=== PATIENT | male | born 1935 | race African-American/Black ===

== ENCOUNTER 2017-04-29 16:26 | Inpatient (IN) | payer MEDICARE ==
[2017-04-29 17:19] VITALS: BP 158/75
[2017-04-29] MEDS ORDERED: Maalox 30 mL Cup PO PRN (20:19)
[2017-04-29] MEDS ORDERED: Magnesium Hydroxide (MOM) 30 mL UDC PO PRN (20:19)
[2017-04-30] MEDS ORDERED: Pantoprazole 40 mg EC Tab PO SCH (06:30)
[2017-04-30] MEDS: Pantoprazole 40 mg EC Tab PO SCH (07:32)
[2017-04-30] MEDS ORDERED: Non-Formulary Item 1 EA (Dexlansoprazole [Dexilant] 60 MG) PO SCH (09:00)
[2017-04-30] MEDS: Multivitamin Tab PO SCH (09:18)
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
[2017-04-30] MEDS ORDERED: Haloperidol Lactate 5 mg/mL 1mL Vial ONE (12:21)
[2017-04-30] MEDS ORDERED: Haloperidol Lactate 5 mg/mL 1mL Vial IM ONE (12:25)
[2017-05-01] MEDS: Pantoprazole 40 mg EC Tab PO SCH (06:32)
[2017-05-01] MEDS: Multivitamin Tab PO SCH (08:33)
--- NOTE | 2017-05-01 15:39 | Progress Notes ---
DATE: 05/01/2017 SUBJECTIVE: The patient seen and examined. The patient is sitting in the chair. Upon further questions patient said he wants to go home. Denies any chest pain, shortness of breath, palpitation, dizziness, nausea, vomiting. OBJECTIVE: VITAL SIGNS: Temperature 98.2, pulse 70, respiratory rate 18, blood pressure 130/76. HEENT: No facial asymmetry. NECK: Supple, no JVD. HEART: Regular. CHEST: Lungs equal in expansion, no wheezing, no crackles. ABDOMEN: Soft. No guarding, no rigidity. Bowel sounds are present. No palpable mass. EXTREMITIES: No edema. CLINICAL IMPRESSION: 1. Hypertension. 2. Benign prostatic hypertrophy. 3. Gout. 4. Degenerative joint disease. 5. Psychotic disorder exacerbation. 6. Mild dementia. 7. History of atrial fibrillation. PLAN: The patient will be continued on medication as patient is receiving for underlying problem for gout, which includes Colcrys, hypertension was Norvasc. The patient does take baclofen for the muscle relaxant, which will be continued. Symptoms management provided. Follow up lab will be done: Psychotic evaluation and management deferred to psychiatrist. The patient will be followed by us during the stay in the hospital. JOB# [id number]
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
--- NOTE | 2017-05-01 22:51 | Progress Notes ---
DATE: SUBJECTIVE: The patient was seen and evaluated. The patient's chart reviewed. This is Dr. Chin covering for Dr. Pittman. IDENTIFYING DATA: This is an 81-year-old male presented, agitated and aggressive. Today on [id number] evaluation, the patient's nurses reported the patient continues to be very aggressive, yelling, irritable, agitated. Today on ceen-wv-vlnc evaluation upon approach, he starts screaming without redirection and need a lot of redirection. MENTAL STATUS EXAMINATION: Disorganized, psychotic, delusional. ASSESSMENT AND PLAN: The patient is an 81-year-old male who has been still agitated, who easily derails with conversation. We will continue with the current medication regimen to 50 mg p.o. b.i.d. to target the patient's ongoing residual disorganized thought process that results in lashing out on others. JOB# [id number]
[2017-05-02] MEDS: Pantoprazole 40 mg EC Tab PO SCH (06:32)
[2017-05-02 07:37] LABS: ALB/GLOB RATIO 0.9 (1.0-1.8); ALBUMIN 3.4 gm/dL (4.2-5.5); ALKALINE PHOSPHATASE 104 U/L (34-104); ANION GAP 9.3 (7.0-16.0); BILIRUBIN,TOTAL 0.7 mg/dL (0.3-1.0); BUN - UREA NITROGEN 16 mg/dL (7-25); CALCIUM SERUM 9.5 mg/dL (8.6-10.3); CARBON DIOXIDE 30.5 mEq/L (21.0-31.0); CHLORIDE 102 mEq/L (98-107); CREATININE - SERUM 1.1 mg/dL (0.7-1.3); GLUCOSE 96 mg/dL (70-105); POTASSIUM SERUM 3.8 mEq/L (3.5-5.1); SGOT 17 U/L (13-39); SGPT/ALT 15 U/L (7-52); SODIUM SERUM 138 mEq/L (136-145); TOTAL PROTEIN,SERUM 7.2 gm/dL (6.0-8.3)
[2017-05-02 07:56] LABS: HEMATOCRIT 33.9 % (41.0-60); HEMOGLOBIN 11.3 gm/dL (12-16); MEAN CELL VOLUME 88.9 fl (80-99); MEAN CORPUSCULAR HEMOGLOBIN 29.6 pg (27.0-31.0); MEAN CORPUSCULAR HGB CONC 33.3 pg (28.0-36.0); MEAN PLATELET VOLUME 7.8 fl; PLATELET COUNT 305 Th/cmm (150-400); RED BLOOD COUNT 3.81 Mil/cmm (3.80-5.80); RED CELL DISTRIBUTION WIDTH 12.6 % (11.5-20.0)
[2017-05-02 07:59] LABS: WHITE BLOOD COUNT 2.2 Th/cmm (4.8-10.8)
[2017-05-02 08:00] LABS: MANUAL DIFF REQUIRED? YES
[2017-05-02 08:22] LABS: LYMPHOCYTE 45 % (20-50); MONOCYTE 7 % (2-10); NEUTROPHILS 48 % (40-80); TOTAL CELLS COUNTED 100
[2017-05-02] MEDS: Multivitamin Tab PO SCH (09:20)
--- NOTE | 2017-05-03 01:37 | Progress Notes ---
DATE: 05/02/2017 SUBJECTIVE: The patient was seen and evaluated. The patient's chart reviewed. Today on dnqe-dh-ypov evaluation, he seems to be easily irritable, verbally yelling, screaming, very difficult to redirect. MENTAL STATUS EXAMINATION: Disorganized thought process, confused, disengaged. ASSESSMENT AND PLAN: An 81-year-old male still noted to be agitated with conversation. We will continue with the current medications. Adjustment of the Seroquel to 50 mg p.o. b.i.d. to target the patient's disorganized thought process, which impairs ability to maintain a linear conversation to advocate for his ADLs. [facility]# [id number]
[2017-05-03] MEDS: Pantoprazole 40 mg EC Tab PO SCH (06:42)
[2017-05-03] MEDS: Multivitamin Tab PO SCH (08:58)
[2017-05-03] MEDS ORDERED: Haloperidol Lactate 5 mg/mL 1mL Vial ONE (13:50)
[2017-05-03] MEDS ORDERED: Haloperidol Lactate 5 mg/mL 1mL Vial IM ONE (14:00)
--- NOTE | 2017-05-03 17:54 | Progress Notes ---
DATE: 05/03/2017 SUBJECTIVE: The patient seen and examined. The patient sitting in the chair. Denies any chest pain, shortness of breath, palpitation, dizziness, nausea, vomiting, diarrhea. The patient prefers to go home. PHYSICAL EXAMINATION: VITAL SIGNS: Temperature 97, pulse is 80, respiratory is 18, blood pressure 150/80. HEENT: No facial asymmetry. NECK: Supple, no JVD. No lymphadenopathy, thyromegaly. HEART: Both heart sounds are regular. CHEST: Lung equal in expansion. No wheezing, no crackles. ABDOMEN: Soft. No guarding, no rigidity. Liver, spleen no palpable mass. EXTREMITIES: No edema, no cyanosis, no calf tenderness. NEUROLOGIC: Nonfocal. LABORATORY DATA: White count of 2.2. Hemoglobin 11.3. Chemistry panels are within normal limit. CLINICAL IMPRESSION: 1. Leukopenia, etiology needs to determine. 2. Hypertension. 3. BPH. 4. Hyperlipidemia. 5. Degenerative joint disease. 6. Psychotic disorder 7. History of atrial fibrillation. PLAN: We will proceed with hepatitis panel, B12, folate, MEGA, ESR, RA and CPK to be checked for evaluation of leukopenia. Based on that, we will pursue further. Continue to provide antihypertensive medication with low sodium diet. Continue other medicine as patient receiving for his underlying chronic problem. Psychotic evaluation with the psychiatrist and the patient will be followed by us during his stay in the hospital. JOB# [id number]
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
[2017-05-04] MEDS: Pantoprazole 40 mg EC Tab PO SCH (06:40)
[2017-05-04 08:11] LABS: HEP A AB IGM Negative (Negative); HEP B CORE IGM Negative (Negative); HEP B SURFACE AG QL Negative (Negative); HEP C ANTIBODY 0.2 s/co ratio (0.0-0.9)
[2017-05-04] MEDS: Multivitamin Tab PO SCH (08:32)
--- NOTE | 2017-05-04 22:48 | Progress Notes ---
DATE: 05/04/[address] Pittman. The patient continues to be paranoid, confused. The patient continues with unpredictable, impulsive, needing redirection. Continues to have poor insight about his behavior prior to admission. He is compliant with the medication with no side effects, no sedation, no nausea, no extrapyramidal symptoms. We will continue to work with the patient in group therapy, milieu therapy, and adjust the medications as needed. JOB# [id number]
--- NOTE | 2017-05-04 22:55 | Progress Notes ---
DATE: 05/04/[address] Pittman. SUBJECTIVE: Case was discussed with staff of the patient and reviewed records. He continues to be unpredictable, impulsive, threatening at times. Continues to have poor insight, isolating himself, unable to make a safe plan for self-care or carry on a conversation. No side effects with the medication, no sedation, no nausea, no extrapyramidal symptoms. PLAN: We will continue to work with the patient in group therapy, milieu therapy, and adjust medications as needed. JOB# [id number]
--- NOTE | 2017-05-05 05:41 | Progress Notes ---
DATE: 05/04/2017 SUBJECTIVE: The patient seen and examined. The patient has no new complaints. Workup for leukopenia has been ordered as well. PHYSICAL EXAMINATION: VITAL SIGNS: See nurse's note. HEENT: No facial asymmetry. NECK: Supple, no JVD. HEART: Regular. CHEST AND LUNGS: Equal in expansion, no wheezing, no crackles. ABDOMEN: Soft. EXTREMITIES: No edema. NEUROLOGIC: Nonfocal. AVAILABLE DIAGNOSTIC DATA AND LABORATORY DATA: ESR is reported 65. Hepatitis panels are negative. RF factor are normal. TSH is normal. CLINICAL IMPRESSION: 1. Elevated ESR. 2. Leukopenia. 3. Hypertension. 4. Gout. PLAN: Proceed with a lupus panel to be addressed in order to rule out autoimmune disorder. Continue to watch white blood cell count to get lower than usual in order to avoid neutropenia. The patient will be getting medication for medical management as ordered. The patient will be followed by us during the stay in the hospital. JOB# [id number]
[2017-05-05] MEDS: Pantoprazole 40 mg EC Tab PO SCH (06:42)
[2017-05-05] MEDS: Multivitamin Tab PO SCH (08:55)
--- NOTE | 2017-05-05 20:24 | Progress Notes ---
DATE: Chart reviewed and the patient interviewed. Also discussed the patient's condition with the staff and reviewed records and labs. The patient continued to be confused and forgetful. The patient also is fixating on his ex- and he is paranoid, thinking that she did something wrong for him. The patient also has episodes of agitation and irritability and he had to be given injection 2 days ago because of his aggressive and agitation. He is still confused and needs lots of redirections. Otherwise, the patient is compliant with taking his medications. We will continue monitoring his medications and will continue to follow up. JOB# [id number]
[2017-05-06] MEDS: Pantoprazole 40 mg EC Tab PO SCH (06:43)
[2017-05-06] MEDS: Multivitamin Tab PO SCH (08:53)
[2017-05-06 15:12] LABS: ANTI-NUCLEAR AB SCREEN Negative
--- NOTE | 2017-05-06 23:07 | Progress Notes ---
DATE: 05/06/2017 PATIENT'S ID: An 82-year-old male. SUBJECTIVE: The patient seen and examined. The patient is sitting in the chair. No new event. Lupus panel has been requested, which is partially available anti Zena-1 antibody was less than 0.2. Rheumatoid factor was 10.2. Hepatitis panel is negative. Vitamin B12 reported 282, which is low normal. Thyroid functions are normal. OBJECTIVE: VITAL SIGNS: Temperature 97.8, pulse 74, respiratory is 18, blood pressure 100/66. HEENT: No facial asymmetry. NECK: Supple. No JVD. HEART: Regular. CHEST: Lung equal in expansion. LUNGS: No wheezing. No crackles. ABDOMEN: Soft. EXTREMITIES: No edema. CLINICAL IMPRESSION: 1. Elevated ESR. 2. Leukopenia. 3. Low level of normal vitamin B12. 4. Hypertension. 5. Gout. PLAN: Await complete workup for lupus panel for now. Replace vitamin B12. Monitor the blood pressure. Continue other medicine as prescribed. We will continue to follow this patient during his stay. JOB# [id number]
[2017-05-07] MEDS: Pantoprazole 40 mg EC Tab PO SCH (06:39)
[2017-05-07] MEDS: Multivitamin Tab PO SCH (08:33)
[2017-05-08] MEDS: Pantoprazole 40 mg EC Tab PO SCH (06:34)
[2017-05-08] MEDS: Multivitamin Tab PO SCH (09:21)
--- NOTE | 2017-05-08 21:50 | Progress Notes ---
DATE: 05/08/2017 An 81-year-old male, placed on a hold for danger to others. Apparently aggressive toward . The patient apparently was somewhat paranoid, driving on the wrong side of the road, angry, and agitated. The patient still remains symptomatic. Dr. Pittman is seeing the patient over the past few days, noting he remained confused, forgetful, paranoid, episodes of agitation, irritability, and confusion noted. MEDICATIONS: Noted. Currently on Seroquel. ASSESSMENT: The patient remains symptomatic, still noted to be somewhat disoriented. Some paranoia is noted. Unable to make a plan for self. Still impulsive, threatening at times. Medications were reviewed. ASSESSMENT: The patient remains symptomatic, not safe for a lower level of care, highly impulsive and unpredictable. PLAN: We will continue to monitor, continue to titrate medications. Continue to adjust the medications based on tolerability and side effect profile. JOB# [id number]
[2017-05-09] MEDS: Pantoprazole 40 mg EC Tab PO SCH (06:37)
[2017-05-09] MEDS: Multivitamin Tab PO SCH (09:32)
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
--- NOTE | 2017-05-09 16:44 | Progress Notes ---
DATE: 05/09/2017 An 81-year-old male placed on a hold. The patient threatening behaviors, argumentative, irritability, not safe outside of the hospital setting. On [id number]-da-bxfh, the patient is essentially refusing interview, does not want to talk to me. According to Dr. Pittman a few days ago the patient remains aggressive and agitated in the hospital requiring emergency medications, paranoid. After some time the patient begins talking to me. He knows that he wants to leave. He knows that he lives with his , minimizing his symptoms. The patient remains somewhat confused, disoriented, mostly fixated on leaving the hospital, angry with finding out he cannot leave the hospital. The patient is eating fairly well, sleeping with district superintendent awakenings. MEDICATIONS: Noted. ASSESSMENT: The patient remains somewhat disoriented, symptomatic, minimizing. He is calm at this time; however, medications were noted. PLAN: We will continue to monitor. I will continue to adjust and titrate medications. He is currently on Seroquel 75 mg twice daily. JOB# [id number]
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
[2017-05-10] MEDS: Pantoprazole 40 mg EC Tab PO SCH (06:37)
[2017-05-10] MEDS: Multivitamin Tab PO SCH ×2 (09:08→09:12)
[2017-05-11] MEDS: Pantoprazole 40 mg EC Tab PO SCH (06:48)
[2017-05-11] MEDS: Multivitamin Tab PO SCH (08:30)
[2017-05-12] MEDS: Pantoprazole 40 mg EC Tab PO SCH (06:30)
[2017-05-12] MEDS: Multivitamin Tab PO SCH ×2 (09:27→11:26)
[2017-05-12] MEDS ORDERED: Haloperidol Lactate 5 mg/mL 1mL Vial ONE (16:43)
[2017-05-12] MEDS ORDERED: Haloperidol Lactate 5 mg/mL 1mL Vial IM ONE (16:50)
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
[2017-05-13] MEDS: Pantoprazole 40 mg EC Tab PO SCH (06:47)
[2017-05-13] MEDS: Multivitamin Tab PO SCH (09:14)
--- NOTE | 2017-05-13 17:16 | Progress Notes ---
DATE: 05/13/2017 Case was discussed with staff of the patient, reviewed records. The patient took his medication today. He is less angry and irritable. ____, although paranoid, continues to have poor insight. Continues to be unable to make safe plan for self-care. Unpredictable and impulsive and so far no side effects with the medication, no sedation, no nausea, no extrapyramidal symptoms. We will continue to work with the patient in group therapy, milieu therapy, and adjust medications. JOB# [id number]
--- NOTE | 2017-05-13 21:42 | General Progress Note ---
Subjective - Review of Systems Service Date: 05/13/17 Subjective: Patient seen and examined doing ok denied any complaints Objective - Results Result Diagrams: 05/02/17 07:04 05/02/17 07:04 Recent Labs: Laboratory Last Values WBC 2.2 Th/cmm (4.8-10.8) L* 05/02/17 07:04 RBC 3.81 Mil/cmm (3.80-5.80) 05/02/17 07:04 Hgb 11.3 gm/dL (12-16) L 05/02/17 07:04 Hct 33.9 % (41.0-60) L 05/02/17 07:04 MCV 88.9 fl (80-99) 05/02/17 07:04 MCH 29.6 pg (27.0-31.0) 05/02/17 07:04 MCHC Differential 33.3 pg (28.0-36.0) 05/02/17 07:04 RDW 12.6 % (11.5-20.0) 05/02/17 07:04 Plt Count 305 Th/cmm (150-400) 05/02/17 07:04 MPV 7.8 fl 05/02/17 07:04 Neutrophils (Manual) 48 % (40-80) 05/02/17 07:04 Lymphocytes 45 % (20-50) 05/02/17 07:04 Monocytes 7 % (2-10) 05/02/17 07:04 ESR 65 mm/hr (0-20) H 05/03/17 10:50 Sodium 138 mEq/L (136-145) 05/02/17 07:04 Potassium 3.8 mEq/L (3.5-5.1) 05/02/17 07:04 Chloride 102 mEq/L (98-107) 05/02/17 07:04 Carbon Dioxide 30.5 mEq/L (21.0-31.0) 05/02/17 07:04 Anion Gap 9.3 (7.0-16.0) 05/02/17 07:04 BUN 16 mg/dL (7-25) 05/02/17 07:04 Creatinine 1.1 mg/dL (0.7-1.3) 05/02/17 07:04 Est GFR ( Amer) TNP 05/02/17 07:04 Est GFR (Non-Af Amer) TNP 05/02/17 07:04 BUN/Creatinine Ratio 14.5 05/02/17 07:04 Glucose 96 mg/dL (70-105) 05/02/17 07:04 POC Glucose 94 MG/DL (70 - 105) 04/29/17 19:46 Calcium 9.5 mg/dL (8.6-10.3) 05/02/17 07:04 Magnesium 2.0 mg/dL (1.9-2.7) 05/02/17 07:04 Total Bilirubin 0.7 mg/dL (0.3-1.0) 05/02/17 07:04 AST 17 U/L (13-39) 05/02/17 07:04 ALT 15 U/L (7-52) 05/02/17 07:04 Alkaline Phosphatase 104 U/L (34-104) 05/02/17 07:04 Creatine Kinase 127 U/L (30-223) 05/03/17 10:50 Total Protein 7.2 gm/dL (6.0-8.3) 05/02/17 07:04 Albumin 3.4 gm/dL (4.2-5.5) L 05/02/17 07:04 Globulin 3.8 gm/dL 05/02/17 07:04 Albumin/Globulin Ratio 0.9 (1.0-1.8) L 05/02/17 07:04 Vitamin B12 282 pg/mL (232-1245) 05/04/17 10:50 TSH 1.35 uIU/ml (0.34-5.60) 05/03/17 10:50 Rheumatoid Factor 10.2 IU/mL (0.0-13.9) 05/03/17 10:50 MEGA Screen Negative 05/04/17 16:18 TERRELL-1 Antibody <0.2 05/04/17 16:18 Hepatitis A IgM Ab Negative (Negative) 05/03/17 10:50 Hep Bs Antigen Negative (Negative) 05/03/17 10:50 Hep B Core IgM Ab Negative (Negative) 05/03/17 10:50 Hepatitis C Antibody 0.2 s/co ratio (0.0-0.9) 05/03/17 10:50 - Physical Exam Vitals and I&O: Vital Signs Temp 98.1 F 05/13/17 14:30 Pulse 73 05/13/17 14:30 Resp 20 05/13/17 14:30 BP 109/61 05/13/17 14:30 Pulse Ox 98 05/13/17 14:30 Intake & Output 05/13/17 05/13/17 05/14/17 06:59 18:59 06:59 Intake Total 120 Balance 120 Intake: Oral 120 Other: # Voids 2 Active Medications: Current Medications Acetaminophen (Tylenol) 650 mg PO Q4HR PRN PRN Reason: Mild Pain / Temp above 100 Stop: 06/28/17 20:18 Al Hydrox/Mg Hydrox/Simethicone (Maalox) 30 ml PO Q4HR PRN PRN Reason: GI DISTRESS Stop: 06/28/17 20:18 Amlodipine Besylate (Norvasc) 10 mg PO DAILY [facility] Stop: 06/29/17 08:59 Last Admin: 05/13/17 09:15 Dose: 10 mg Baclofen (Lioresal) 10 mg PO TID [facility] Stop: 06/29/17 08:59 Last Admin: 05/13/17 20:47 Dose: 10 mg Colchicine (Colcrys) 0.6 mg PO DAILY [facility] Stop: 06/29/17 08:59 Last Admin: 05/13/17 09:18 Dose: 0.6 mg Cyanocobalamin (Vitamin B12) 1,000 mcg PO DAILY [facility] Stop: 07/06/17 08:59 Last Admin: 05/13/17 09:15 Dose: 1,000 mcg Lorazepam (Ativan) 0.5 mg PO Q4HR PRN; Protocol PRN Reason: Anxiety Stop: 05/29/17 20:18 Last Admin: 05/13/17 13:32 Dose: 0.5 mg Magnesium Hydroxide (Milk Of Magnesia) 30 ml PO HS PRN PRN Reason: Constipation Multivitamins/Vitamin C (Theragran) 1 tab PO DAILY [facility] Stop: 06/29/17 08:59 Last Admin: 05/13/17 09:14 Dose: 1 tab Pantoprazole Sodium (Protonix) 40 mg PO QDAC MICHAEL Stop: 06/29/17 07:29 Last Admin: 05/13/17 06:47 Dose: 40 mg Quetiapine Fumarate (Seroquel) 100 mg PO BID MICHAEL PRN Reason: Protocol Stop: 07/09/17 08:59 Last Admin: 05/13/17 17:52 Dose: 100 mg Tamsulosin HCl (Flomax) 0.4 mg PO HS MICHAEL Stop: 06/28/17 20:59 Last Admin: 05/13/17 20:47 Dose: 0.4 mg Zolpidem Tartrate (Ambien) 5 mg PO HS PRN PRN Reason: Insomnia Stop: 06/28/17 20:18 Last Admin: 05/13/17 20:47 Dose: 5 mg General: Alert Cardiovascular: Regular rate Lungs: Clear to auscultation Abdomen: Soft, no Distended Assessment/Plan - Assessment Assessment: Leucopenia Anemia BPH GERD - Plan Plan: So far negative autoimmune work up Follow up labs in am PPI Flomax Nutritional Asmnt/Malnutr-PDOC - Dietary Evaluation Malnutrition Findings (Please click <Entered> for more info): Nutritional Asmnt/Malnutrition Start: 05/05/17 15: 51 Text: Status: Complete Freq: Document 05/05/17 15:51 MERI (Rec: 05/05/17 16:00 KRISTIAN [email or web address]) Nutritional Asmnt/Malnutrition Patient General Information Nutritional Screening Moderate Risk Diagnosis psychosis Pertinent Medical Hx/Surgical Hx HTN, CHF, chronic a fib, DJD, BPH Subjective Information Pt seen sitting in dinning room at time of visit, alert but confused. Pt reported food was good, no food preference given. Per EMR, PO intake 100% x 6 meals over the past 2 days. Current Diet Order/ Nutrition Support low sodium Pertinent Medications theragran, protonix, seroquel Pertinent Labs 05/02 alb 3.4 Nutritional Hx/Data Height 1.75 m Height (Calculated Centimeters) 175.3 Current Weight (lbs) 83.915 kg Weight (Calculated Kilograms) 83.9 Weight (Calculated Grams) 32632.6 [place] Body Weight 160 Body Mass Index (BMI) 27.3 Weight Status Overweight GI Symptoms GI Symptoms None Last BM 05/04 Difficult in: None Skin Integrity/Comment: dryness Current %PO Good (75-100%) Estimated Nutritional Goals Calories/Kcals/Kg 25-30 based on IBW 73kg Kcals Calculated 5051-0228 Protein g/k Protein Calculated 73 Fluid: ml 1825-2190ml (1ml/kcal) Nutritional Problem No current Nutrition Prob Problem N/A Malnutrition Alert Protein-Calorie Malnutrition N/A Is there a minimum of two criteria No selected? Query Text:Check all the applicable criteria. A minimum of two criteria are recommended for diagnosis of either severe or non-severe malnutrition. Intervention/Recommendation Comments 1. Continue with low sodium diet as ordered. 2. Monitor PO intake, wt, labs and skin integrity 3. F/U as low risk in 7days, 4 /4 Expected Outcomes/Goals Expected Outcomes/Goals 1. PO intake to meet at least 75% of nutritional needs. 2. Wt stability, skin to remain intact, labs to approach WNL.
[2017-05-14] MEDS: Pantoprazole 40 mg EC Tab PO SCH (07:02)
[2017-05-14 07:54] LABS: % BASOPHILS 0.6 % (0.0-2.0); % EOSINOPHILS 0.1 % (0.0-5.0); % LYMPHOCYTES 35.4 % (20.0-50.0); % MONOCYTES 12.6 % (2.0-10.0); % NEUTROPHILS 51.3 % (40.0-80.0); HEMATOCRIT 35.4 % (41.0-60); HEMOGLOBIN 11.8 gm/dL (12-16); MEAN CELL VOLUME 89.1 fl (80-99); MEAN CORPUSCULAR HEMOGLOBIN 29.6 pg (27.0-31.0); MEAN CORPUSCULAR HGB CONC 33.3 pg (28.0-36.0); MEAN PLATELET VOLUME 7.2 fl; MONOCYTE ABSOLUTE 0.3 Th/cmm (0.3-1.0); NEUTROPHILE ABSOLUTE 1.4 Th/cmm (1.8-8.0); PLATELET COUNT 308 Th/cmm (150-400); RED BLOOD COUNT 3.97 Mil/cmm (3.80-5.80); RED CELL DISTRIBUTION WIDTH 13.4 % (11.5-20.0)
[2017-05-14 07:56] LABS: WHITE BLOOD COUNT 2.7 Th/cmm (4.8-10.8)
[2017-05-14 08:12] LABS: ANION GAP 9.1 (7.0-16.0); BUN - UREA NITROGEN 24 mg/dL (7-25); CALCIUM SERUM 9.6 mg/dL (8.6-10.3); CARBON DIOXIDE 29.9 mEq/L (21.0-31.0); CHLORIDE 105 mEq/L (98-107); CREATININE - SERUM 1.3 mg/dL (0.7-1.3); GLUCOSE 98 mg/dL (70-105); SODIUM SERUM 140 mEq/L (136-145)
[2017-05-14] MEDS: Multivitamin Tab PO SCH (11:24)
--- NOTE | 2017-05-14 21:22 | Progress Notes ---
DATE: 05/14/2017 Case was discussed with staff of the patient, reviewed records. The patient continues to have ____ being very agitative, continues to be psychotic, unpredictable, impulsive, needing redirection. Continues to have poor insight and his Seroquel dose was increased on the 2nd to 100 mg twice a day. He was not taking it that he start taking it since yesterday. He has no side effects with the medication, no sedation, no nausea, no extrapyramidal symptoms. The patient continues to be gravely disabled and unable to make safe plan for self-care. He can formulate a safe plan for self-care. No side effects with the medication, no sedation, no nausea. We will continue to work with the patient in group therapy, milieu therapy, and adjust medication as needed. JOB# [id number]
[2017-05-15] MEDS: Pantoprazole 40 mg EC Tab PO SCH (06:46)
[2017-05-15] MEDS: Multivitamin Tab PO SCH (09:15)
[2017-05-16] MEDS: Pantoprazole 40 mg EC Tab PO SCH (06:41)
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
[2017-05-16] MEDS: Multivitamin Tab PO SCH (09:50)
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
[2017-05-17] MEDS: Pantoprazole 40 mg EC Tab PO SCH (06:33)
[2017-05-17] MEDS: Multivitamin Tab PO SCH (10:02)
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
[2017-05-18] MEDS: Pantoprazole 40 mg EC Tab PO SCH ×2 (06:41→06:45)
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
[2017-05-18] MEDS: Multivitamin Tab PO SCH (13:06)
[2017-05-19] MEDS: Pantoprazole 40 mg EC Tab PO SCH (06:50)
[2017-05-19] MEDS: Multivitamin Tab PO SCH (09:23)
[2017-05-19] MEDS: OLANZapine 5 mg Oral Disintegrating Tab PO SCH ×2 (09:23→18:36)
--- NOTE | 2017-05-19 23:38 | Progress Notes ---
DATE: SUBJECTIVE: Chart reviewed and the patient interviewed. Also discussed the patient's condition with the staff and reviewed the records and labs. The patient is still extremely agitated and confused. The patient also is still paranoid. Also, staff reports that the patient has poor hygiene and he ____ in his room and also ____ all over the place. Also, has difficulty with his sleep at night. The patient also has been banging doors and windows because of his confusion and agitation. Also, has been paranoid and thinking that people are stealing his belongings. MENTAL STATUS: The patient is agitated and is confused and unable to answer any of my questions. He also is in angry mood, also suspicious, and is paranoid. ASSESSMENT: The patient is still psychotic and agitated. TREATMENT PLAN: We will continue monitoring his behavior and his condition closely. The patient also has not been compliant with taking his medications and refused his Seroquel yesterday. We will add Zyprexa Zydis for better compliance with his medications, although he is on Seroquel, but we will adjust and cross titrate medications when he is more compliant. Also, hopefully Zyprexa will help him to sleep at night. Vital signs are stable. LABORATORY DATA: No new labs available for review. Estimated length of stay 4-6 days. JOB# [id number]
[2017-05-20] MEDS: Pantoprazole 40 mg EC Tab PO SCH (07:09)
[2017-05-20] MEDS: OLANZapine 5 mg Oral Disintegrating Tab PO SCH ×2 (10:31→16:32)
[2017-05-20] MEDS: Multivitamin Tab PO SCH (10:34)
[2017-05-21] MEDS: Pantoprazole 40 mg EC Tab PO SCH (06:36)
[2017-05-21] MEDS: Multivitamin Tab PO SCH (08:39)
[2017-05-21] MEDS: OLANZapine 5 mg Oral Disintegrating Tab PO SCH (08:39)
[2017-05-21] MEDS ORDERED: Haloperidol Lactate 5 mg/mL 1mL Vial ONE (14:19)
[2017-05-21] MEDS ORDERED: Haloperidol Lactate 5 mg/mL 1mL Vial IM ONE (14:20)
== END 2017-05-21 16:00 | DRG 885 ==
LOC: GERO2 16:26 → GERO 16:51
PROVIDERS: ADMIT Psychiatry & Neurology Psychiatry; ATTEND Psychiatry & Neurology Psychiatry
DX: F23 Brief psychotic disorder (principal); I11.0 Hypertensive heart disease with heart failure; F03.90 Unspecified dementia, unspecified severity, without behavioral disturbance, psychotic disturbance, mood disturbance, and anxiety; M10.9 Gout, unspecified; M19.90 Unspecified osteoarthritis, unspecified site; N40.0 Benign prostatic hyperplasia without lower urinary tract symptoms; D72.819 Decreased white blood cell count, unspecified; K21.9 Gastro-esophageal reflux disease without esophagitis; I50.9 Heart failure, unspecified; I48.2 Chronic atrial fibrillation; Z82.49 Family history of ischemic heart disease and other diseases of the circulatory system
CPT/HCPCS: 36415-UA; 80048-TC; 80053-TC; 80074-90; 82550-TC; 82607-90; 82948-90; 83735-TC; 84443-TC; 85007-TC; 85025-TC; 85027-TC; 85652-TC; 86038-90; 86235-90; 86430-90; 90899; G0410; J1200; J1630; J2060; Z7610

== ENCOUNTER 2018-01-27 23:02 | Emergency (ER) | payer MEDICARE, MEDICAID ==
--- NOTE | 2018-01-27 23:35 | ED Physician Chart ---
ED Chief Complaint/HPI - Patient Information Date Seen:: 01/27/18 Time Seen:: 23:20 Chief Complaint:: scrotal mass History of Present Illness:: Patient states he has had scrotal swelling for 2 weeks the patient is confused. No vomiting or diarrhea. Allergies:: Allergies Allergy/AdvReac Type Severity Reaction Status Date / Time No Known Allergies Allergy Verified 01/27/18 23:03 Vitals:: Vital Signs - 8 hr 01/27/18 23:05 Temp 98.1 F HR 46 RR 20 BP 117/64 O2 Sat % 100 Historian:: Patient Review:: Transfer documents Reviewed ED Review of Systems - Review of Systems General/Constitutional: No fever, No chills, No weight loss, No weakness, No diaphoresis, No edema, No loss of appetite Skin: No skin lesions, No rash, No bruising Head: No headache, No light-headedness Eyes: No loss of vision, No pain, No diplopia ENT: No earache, No nasal drainage, No sore throat, No tinnitus Neck: No neck pain, No swelling, No thyromegaly, No stiffness, No mass noted Cardio Vascular: No chest pain, No palpitations, No PND, No orthopnea, No edema Pulmonary: No SOB, No cough, No sputum, No wheezing GI: No nausea, No vomiting, No diarrhea, No pain, No melena, No hematochezia, No constipation, No hematemesis G/U: No dysuria, No frequency, No hematuria, Other (see history and physical) Musculoskeletal: No bone or joint pain, No back pain, No muscle pain Endocrine: No polyuria, No polydipsia Psychiatric: No prior psych history, No depression, No anxiety, No suicidal ideation Hematopoietic: No bruising, No lymphadenopathy Allergic/Immuno: No urticaria, No angioedema Neurological: No syncope, No focal symptoms, No weakness, No paresthesia, No headache, No seizure, No dizziness, No confusion, No vertigo ED Past Medical History - Past Medical History Past Medical History: HTN, Dementia, Other (acute renal failure; schizophrenia; chronic renal disease; hydrocele; atrial fibrillation; aortic stenosis) Family History: Other (not available) Social History: Smoker, Care Facility Surgical History: other (not available) Psychiatricy History: Schizophrenia, Dementia Medication: Reviewed Family Medical History - Family Member mother History Unknown: Yes Ethnicity: Unknown Living Status: Unknown ED Physical Exam - Physical Examination General/Constitutional: Awake, Well-developed, well-nourished, Alert, Non-toxic appearing, Ambulatory Other Gen/Cons comments:: Patient is confused; he does not know the year Head: Atraumatic Eyes: Lids, conjuctiva normal, PERRL, EOMI Skin: Nl inspection, No rash, No skin lesions, No ecchymosis, Well hydrated, No lymphadenopathy ENMT: External ears, nose nl, Nasal exam nl, Lips, teeth, gums nl Neck: Nontender, Full ROM w/o pain, No JVD, No nuchal rigidity, No bruit, No mass, No stridor Respiratory: Nl effort/Exclusion, Clear to Auscultation, No Wheeze/Rhonchi/Rales Cardio Vascular: NL S1 S2 Other Cardio Vascular comments:: irregular rhythm with a 4/6 holosystolic murmur GI: No tenderness/rebounding/guarding, No organomegaly, No hernia, Normal BS's, Nondistended, No mass/bruits, No McBurney tenderness Other comments:: Genitalia: About 6 x 4 cm testes palpable in each hemiscrotum; in right hemiscrotum there is a 12 cm in diameter spherical mass separate from the testes Extremities: No edema Other Extremities comments:: 3 out of 4 pretibial pitting edema Neuro/Psych: No focal deficits ED Labs/Radiology/EKG Results - Radiology Results Results: Abnormal Lab Results 01/27/18 01/27/18 23:40 23:40 WBC 3.1 L RBC 3.48 L Hgb 10.3 L Hct 31.3 L MCV 89.7 MCH 29.7 MCHC Differential 33.1 RDW 14.1 Plt Count 274 MPV 7.2 Add Manual Diff YES Sodium 142 Potassium 3.8 Chloride 106 Carbon Dioxide 29.2 Anion Gap 10.6 BUN 26 H Creatinine 1.3 Est GFR ( Amer) TNP Est GFR (Non-Af Amer) TNP BUN/Creatinine Ratio 20.0 Glucose 110 H Calcium 9.5 Total Bilirubin 0.4 AST 27 ALT 34 Alkaline Phosphatase 145 H Total Protein 6.5 Albumin 3.5 L Globulin 3.0 Albumin/Globulin Ratio 1.2 Abnormal Lab Results 01/27/18 01/27/18 23:40 23:40 WBC 3.1 L RBC 3.48 L Hgb 10.3 L Hct 31.3 L MCV 89.7 MCH 29.7 MCHC Differential 33.1 RDW 14.1 Plt Count 274 MPV 7.2 Add Manual Diff YES Sodium 142 Potassium 3.8 Chloride 106 Carbon Dioxide 29.2 Anion Gap 10.6 BUN 26 H Creatinine 1.3 Est GFR ( Amer) TNP Est GFR (Non-Af Amer) TNP BUN/Creatinine Ratio 20.0 Glucose 110 H Calcium 9.5 Total Bilirubin 0.4 AST 27 ALT 34 Alkaline Phosphatase 145 H Total Protein 6.5 Albumin 3.5 L Globulin 3.0 Albumin/Globulin Ratio 1.2 Abnormal Lab Results 01/27/18 01/27/18 01/28/18 23:40 23:40 00:05 WBC 3.1 L RBC 3.48 L Hgb 10.3 L Hct 31.3 L MCV 89.7 MCH 29.7 MCHC Differential 33.1 RDW 14.1 Plt Count 274 MPV 7.2 Add Manual Diff YES Band Neutrophils % 3 Neutrophils (Manual) 49 Lymphocytes 36 Monocytes 12 H Sodium 142 Potassium 3.8 Chloride 106 Carbon Dioxide 29.2 Anion Gap 10.6 BUN 26 H Creatinine 1.3 Est GFR ( Amer) TNP Est GFR (Non-Af Amer) TNP BUN/Creatinine Ratio 20.0 Glucose 110 H Whole Bld Lactic Acid -0.04 L Calcium 9.5 Magnesium Total Bilirubin 0.4 AST 27 ALT 34 Alkaline Phosphatase 145 H Total Protein 6.5 Albumin 3.5 L Globulin 3.0 Albumin/Globulin Ratio 1.2 01/28/18 00:40 WBC RBC Hgb Hct MCV MCH MCHC Differential RDW Plt Count MPV Add Manual Diff Band Neutrophils % Neutrophils (Manual) Lymphocytes Monocytes Sodium Potassium Chloride Carbon Dioxide Anion Gap BUN Creatinine Est GFR ( Amer) Est GFR (Non-Af Amer) BUN/Creatinine Ratio Glucose Whole Bld Lactic Acid Calcium Magnesium 2.2 Total Bilirubin AST ALT Alkaline Phosphatase Total Protein Albumin Globulin Albumin/Globulin Ratio - EKG Interpretations Rate & Rhythm: junctional rhythm with a rate of 33 [place]: normal ED Assessment - Assessment General Assessment: EKG showed a junctional rhythm with a rate of 33. I spoke to Dr. Gonzalez and he felt he could not admit the patient to this hospital because there is no physician to put in a transvenous pacemaker here. Patient was given Atrovent 0.5 mg intravenously and his heart rate increased to an average of about 40-50/ min. Dr. Gonzalez suggested starting an transvenous pacemaker in the emergency department which was done. Patient to be transferred by enroute controller ambulance to [facility] where patient will be admitted by Dr. Gonzalez but patient will be seen in the emergency department. I spoke to the ED physician at [facility] Dr. Emerson. ED Septic Shock - . Is Septic Shock (SBP<90, OR Lactate>4 mmol\L) present?: No - <6hrs of presentation: Vital Signs: Vital Signs - 8 hr 01/27/ 23:05 Temp 98.1 F HR 46 RR 20 BP 117/64 O2 Sat % 100 ED Reassessment (Disposition) - Reassessment Reassessment Condition:: Unchanged - Diagnosis Diagnosis:: Cardiac arrhythmia; jeannette bradycardia; hydrocele right hemiscrotum - Patient Disposition Discharge/Transfer:: Acute Care (other hosp) Spoke to:: Matias Gonzalez Admitting Medical Physician:: Matias Gonzalez Condition at Disposition:: Stable
[2018-01-27 23:49] LABS: HEMATOCRIT 31.3 % (41.0-60); HEMOGLOBIN 10.3 gm/dL (12-16); LYMPHOCYTE ABSOLUTE 1.1 Th/cmm (1.5-3.0); MEAN CELL VOLUME 89.7 fl (80-99); MEAN CORPUSCULAR HEMOGLOBIN 29.7 pg (27.0-31.0); MEAN CORPUSCULAR HGB CONC 33.1 pg (28.0-36.0); MEAN PLATELET VOLUME 7.2 fl; MONOCYTE ABSOLUTE 0.5 Th/cmm (0.3-1.0); NEUTROPHILE ABSOLUTE 1.5 Th/cmm (1.8-8.0); PLATELET COUNT 274 Th/cmm (150-400); RED BLOOD COUNT 3.48 Mil/cmm (3.80-5.80); RED CELL DISTRIBUTION WIDTH 14.1 % (11.5-20.0)
[2018-01-28 00:05] LABS: ALB/GLOB RATIO 1.2 (1.0-1.8); ALBUMIN 3.5 gm/dL (4.2-5.5); ALKALINE PHOSPHATASE 145 U/L (34-104); ANION GAP 10.6 (7.0-16.0); BILIRUBIN,TOTAL 0.4 mg/dL (0.3-1.0); BUN - UREA NITROGEN 26 mg/dL (7-25); CALCIUM SERUM 9.5 mg/dL (8.6-10.3); CARBON DIOXIDE 29.2 mEq/L (21.0-31.0); CHLORIDE 106 mEq/L (98-107); CREATININE - SERUM 1.3 mg/dL (0.7-1.3); GLUCOSE 110 mg/dL (70-105); POTASSIUM SERUM 3.8 mEq/L (3.5-5.1); SGOT 27 U/L (13-39); SGPT/ALT 34 U/L (7-52); SODIUM SERUM 142 mEq/L (136-145); TOTAL PROTEIN,SERUM 6.5 gm/dL (6.0-8.3)
[2018-01-28 00:09] LABS: WHITE BLOOD COUNT 3.1 Th/cmm (4.8-10.8)
[2018-01-28] MEDS ORDERED: Atropine Sulfate 0.1 mg/mL 5 mL Syr IVP ONE (00:41)
[2018-01-28 01:11] LABS: BAND NEUTROPHILE 3 % (0-10); NEUTROPHILS 49 % (40-80)
[2018-01-28 01:12] LABS: LYMPHOCYTE 36 % (20-50); MONOCYTE 12 % (2-10)
== END 2018-01-28 03:08 | disposition short-term general hospital (02) ==
LOC: ER 23:02
DX: N43.3 Hydrocele, unspecified (principal); I49.9 Cardiac arrhythmia, unspecified; I10 Essential (primary) hypertension; F17.200 Nicotine dependence, unspecified, uncomplicated; F20.9 Schizophrenia, unspecified
CPT/HCPCS: 99285; 96374; 84484; 36415 ×2; 83605; 85007; 85025; 83735; 80053; 87081; 87040; 93005; J0461